=== PATIENT | male | born 1945 | race Caucasian/White ===

== ENCOUNTER 2017-08-10 07:48 | Emergency (ER) | payer OTHER ==
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
[2017-08-10] MEDS ORDERED: MAGNESIUM HYDROXIDE/AL HYDROX 30 ML, LIDOCAINE VISC 2% 15ML 15 ML PO ONE ×2 (08:31)
[2017-08-10] MEDS ORDERED: SUCRALFATE 1 G/10 ML UD PO ONE (08:50)
[2017-08-10 08:53] LABS: BASO % 0.4 % (0-6); EOS % 4.7 % (0-6); GRAN % 65.3 % (47-80); HEMATOCRIT 48.1 % (42.0-52.0); HEMOGLOBIN 16.1 gm/dl (14.0-18.0); LYMPH % 20.6 % (16-45); MEAN CELL VOLUME 95.8 fl (81-97); MEAN CORPUSCULAR HEMOGLOBIN 32.1 pg (27-33); MEAN CORPUSCULAR HGB CONC 33.5 g/dl (32-36); MEAN PLATELET VOLUME 9.7 fl (7.4-10.4); PLATELET COUNT 318 K/uL (130-400); RED BLOOD COUNT 5.02 M/uL (4.40-5.70); RED CELL DISTRIBUTION WIDTH 13.5 % (11.5-14.5); WHITE BLOOD COUNT W/O DIFF 9.6 K/uL (4.2-12.2)
[2017-08-10 09:09] LABS: BLOOD UREA NITROGEN 23 mg/dL (8-23); CREATININE 0.9 mg/dL (0.7-1.2); EST GLOMERULAR FILTRATION RATE > 60 mL/min
[2017-08-10 09:11] LABS: TOTAL PROTEIN 8.2 g/dL (6.6-8.7)
[2017-08-10 09:12] LABS: GLUCOSE,RANDOM 102 mg/dL (74-109)
[2017-08-10 09:15] LABS: ALT/SGPT 17 U/L (<41); CREATINE PHOSPHOKINASE 119 U/L (39-308)
[2017-08-10 09:16] LABS: ALBUMIN 4.7 g/dL (4.0-5.0); ALKALINE PHOSPHATASE 67 U/L (40-129); AST/SGOT 19 U/L (10.0-50.0); BILIRUBIN,DIRECT < 0.2 mg/dL (0-0.3); CKMB 5.6 ng/mL (<6.73); LIPASE 26 U/L (13-60)
[2017-08-10] MEDS ORDERED: KETOROLAC 30 MG/ML VIAL IVP ONE (09:23)
[2017-08-10] MEDS ORDERED: LORAZEPAM 2 MG/ML VIAL IV ONE (09:47)
== END 2017-08-10 10:23 | disposition home or self-care (01) ==
LOC: ER 07:48
DX: R10.13 Epigastric pain (principal); R74.8 Abnormal levels of other serum enzymes; R07.89 Other chest pain; V49.9XXD Car occupant (driver) (passenger) injured in unspecified traffic accident, subsequent encounter
CPT/HCPCS: 80048; 80076; 82550; 82553; 83690; 84484; 85025; 93005; 93010; 96374; 96375; 99284; J1885; J3490